=== PATIENT | female | born 1990 | race African-American/Black ===

== ENCOUNTER → 2016-10-09 | Outpatient (CLI) | payer OTHER ==
--- NOTE | 2016-10-10 09:24 | US ---
EXAMINATION TYPE: US pelvic complete DATE OF EXAM: 10/09/2016 6:12 PM COMPARISON: NONE CLINICAL HISTORY: N92.0 Menorrhagia. TECHNIQUE: Transabdominal (TA) Date of LMP: 09/30/16 EXAM MEASUREMENTS: Uterus: 7.2 x 3.1 x 4.8 cm Endometrial Stripe: 0.6 cm Right Ovary: 2.3 x 1.6 x 1.4 cm Left Ovary: 4.5 x 3.2 x 3.2 cm 1. Uterus: Anteverted wnl 2. Endometrium: wnl 3. Right Ovary: wnl 4. Left Ovary: simple appearing cyst measuring 3.9 x 2.7 x 2.9cm 5. Bilateral Adnexa: wnl 6. Posterior cul-de-sac: wnl IMPRESSION: Left ovarian cyst, consider follow-up
== END | disposition home or self-care (01) ==
LOC: RADUSMAIN 17:48
PROVIDERS: ATTEND Obstetrics & Gynecology
DX: N83.201 Unspecified ovarian cyst, right side (principal)
CPT/HCPCS: 76856

== ENCOUNTER 2019-12-19 19:30 | Emergency (ER) | payer OTHER ==
[2019-12-19 19:36] VITALS: RESP 16; TEMP 98
[2019-12-19 20:39] LABS: Basophils % (A) 0 %; Eosinophils # (A) 0.1 k/uL (0-0.7); Eosinophils % (A) 2 %; HCT 33.7 % (34.0-46.0); HGB 11.6 gm/dL (11.4-16.0); Lymphocytes # (A) 1.3 k/uL (1.0-4.8); Lymphocytes % (A) 23 %; MCH 33.6 pg (25.0-35.0); MCHC 34.2 g/dL (31.0-37.0); MCV 98.1 fL (80.0-100.0); Mean Platelet Volume 8.1; Monocytes # (A) 0.3 k/uL (0-1.0); Monocytes % (A) 4 %; Neutrophils # (A) 3.9 k/uL (1.3-7.7); Neutrophils % (A) 69 %; Platelet Count 198 k/uL (150-450); RBC 3.44 m/uL (3.80-5.40); RDW 12.7 % (11.5-15.5); WBC 5.7 k/uL (3.8-10.6)
[2019-12-19 20:46] LABS: Appearance,Urine Clear (Clear); Bacteria,Urine Rare /hpf; Bilirubin,Urine Negative (Negative); Blood,Urine Negative (Negative); Color,Urine Yellow; Glucose,Urine (UA) Negative (Negative); Ketones,Urine Negative (Negative); Leukocyte Esterase,Urine Small (Negative); Mucus,Urine Few /hpf; Nitrite,Urine Negative (Negative); PH, Urine 7.5 (5.0-8.0); Protein,Urine Negative (Negative); RBC,Urine 3 /hpf (0-5); Specific Gravity,Urine 1.026 (1.001-1.035); Squamous Epithelial Cell,Urine <1 /hpf (0-4); WBC,Urine 14 /hpf (0-5)
[2019-12-19 20:49] LABS: ALT 10 U/L (4-34); AST 20 U/L (14-36); African American GFR (CKD) >90 (>60 ml/min/1.73 sqM); Albumin 3.7 g/dL (3.5-5.0); Alkaline Phosphatase 67 U/L (38-126); Anion Gap 6 mmol/L; Blood Urea Nitrogen 11 mg/dL (7-17); Calcium 9.2 mg/dL (8.4-10.2); Carbon Dioxide 24 mmol/L (22-30); Chloride 105 mmol/L (98-107); Glucose 74 mg/dL (74-99); Non-African American GFR(CKD) >90 (>60 ml/min/1.73 sqM); Potassium 3.9 mmol/L (3.5-5.1); Sodium 135 mmol/L (137-145); Total Bilirubin 0.3 mg/dL (0.2-1.3); Total Protein 6.4 g/dL (6.3-8.2)
[2019-12-19 21:05] LABS: HCG,Quantitative Serum 10022.8 mIU/mL
--- NOTE | 2019-12-19 22:04 | US ---
EXAMINATION TYPE: Transabdominal DATE OF EXAM: 12/19/2019 9:15 PM COMPARISON: US 2017 CLINICAL HISTORY: preg, lower abdominal discomfort. , lower abdominal discomfort. LMP unknown . . EXAM PERFORMED: Transvaginal (TV) and Transabdominal (TA) EXAM MEASUREMENTS: GESTATIONAL AGE / DATING Physician Established: Not yet established Dates by LMP: Unknown Dates by First Scan: This is first scan Dates by Current Scan for: (5 weeks/3 days) EDC: 08/18/2019. Gestational sac and yolk sac seen at this time. MATERNAL ANATOMY Uterus: 7.9 x 6.5 x 4.5 cm. Right Ovary: 4.1 x 2.0 x 2.9 cm. Measures enlarged. Anechoic area seen: 1.6 x 1.2 x 1.5 cm. Additiona l mixed area seen as mentioned below. Left Ovary: not seen Post CDS / Adnexa: Fluid seen in CDS Presence of free fluid: Fluid seen in CDS Presence of corpus luteal cyst: Area of mixed echogenicity and peripheral vascularity seen within rig ht ovary: 2.0 x 1.6 x 1.8 cm. Presence of subchorionic bleed: not seen GESTATION / SURVEY MSD: 1.24 cm. (5 weeks/3 days) Yolk Sac (normal less than 6mm): 1.9 mm IUP: Gestational sac and yolk sac seen at this time. Date of LMP: unknown Beta HcG (if available): detected IMPRESSION: 1. Single intrauterine gestation estimated at 5 weeks 3 days gestation based on the mean sac diameter . pole is not identified. Yolk sac is present. No cardiac activity at this time. Follow-up is r ecommended.
--- NOTE | 2019-12-19 22:07 | ED ---
Abdominal Pain HPI - General Chief Complaint: Abdominal Pain Stated Complaint: Abd Pain Time Seen by Provider: 12/19/19 19:39 Source: patient Mode of arrival: ambulatory Limitations: no limitations - History of Present Illness Initial Comments: 29-year-old A1 presenting to the emergency department today for chief complaint of lower abdominal cramping. Patient states that she had positive test one week ago. She states her last period was in the beginning of November inches unsure of the exact date. Patient denies any vaginal bleeding va ginal discharge dysuria urgency frequency. She states she developed cramping yesterday. Patient states that she follows Dr. Farley for OBGYN care. Patient states that she was concerned that something was wrong with the and presented to the ER for evaluation. patient has no additional complaints. - Related Data Home Medications Medication Instructions Recorded Confirmed Hydrocortisone Oint 1 applic TOPICAL BID PRN 12/19/19 12/19/19 [Hydrocortisone 2.5% Oint] Allergies Allergy/AdvReac Type Severity Reaction Status Date / Time No Known Allergies Allergy Verified 12/19/19 20:42 Review of Systems ROS Statement: Those systems with pertinent positive or pertinent negative responses have been documented in the HPI. ROS Other: All systems not noted in ROS Statement are negative. Past Medical History Past Medical History: No Reported History History of Any Multi-Drug Resistant Organisms: None Reported Past Surgical History: No Surgical Hx Reported Past Anesthesia/Blood Transfusion Reactions: No Reported Reaction Past Psychological History: No Psychological Hx Reported Smoking Status: Never smoker Past Alcohol Use History: None Reported Past Drug Use History: None Reported - Past Family History Mother Family Medical History: Hypertension General Exam - General Exam Comments Initial Comments: General: The patient is awake and alert, in no distress Eye: +3 mm pupils are equal, round and reactive to light, extra-ocular movements are intact. No nystagmus. There is normal conjunctiva bilaterally. No signs of icterus. Cardiovascular: There is a regular rate and rhythm. No murmur, rub or gallop is appreciated. Respiratory: Lungs are clear to auscultation, respirations are non-labored, breath sounds are equal. No wheezes, stridor, rales, or rhonchi. Gastrointestinal: Soft, non-distended, non-tender abdomen without masses or organomegaly noted. There is no rebound or guarding present. Musculoskeletal: Normal ROM, no tenderness. Strength 5/5. Sensation intact. Radial pulses equal bilaterally 2+. Neurological: A&O x 3. CN II-XII intact grossly, There are no obvious motor or sensory deficits. Coordination appears grossly intact. Speech is normal. Skin: Skin is warm and dry and no rashes or lesions are noted. Psychiatric: Cooperative, appropriate mood & affect, normal judgment. Limitations: no limitations Course Vital Signs 12/19/19 12/19/19 19:33 22:27 Temperature 98.0 F Pulse Rate 62 81 Respiratory 16 16 Rate Blood Pressure 103/71 124/72 O2 Sat by Pulse 100 99 Oximetry Medical Decision Making - Medical Decision Making 29F feel presented for chief complaint of lower abdominal cramping. In . Last period last month. There is IUP on US measuring 5wks 3 days. Patient denies vaginal bleeding. Refused vaginal examination. Patient is agreeable to care plan and discharge. I recommended f/u in office with Dr. Farley. Discussed case wtih Dr. Powers. - Lab Data Result diagrams: 12/19/19 20:13 12/19/19 20:13 Lab Results 12/19/19 12/19/19 12/19/19 Range/Units 19:44 19:53 20:13 WBC (3.8-10.6) k/uL RBC (3.80-5.40) m/uL Hgb (11.4-16.0) gm/dL Hct (34.0-46.0) % MCV (80.0-100.0) fL MCH (25.0-35.0) pg MCHC (31.0-37.0) g/dL RDW (11.5-15.5) % Plt Count (150-450) k/uL Neutrophils % % Lymphocytes % % Monocytes % % Eosinophils % % Basophils % % Neutrophils # (1.3-7.7) k/uL Lymphocytes # (1.0-4.8) k/uL Monocytes # (0-1.0) k/uL Eosinophils # (0-0.7) k/uL Basophils # (0-0.2) k/uL Sodium 135 L (137-145) mmol/L Potassium 3.9 (3.5-5.1) mmol/L Chloride 105 (98-107) mmol/L Carbon Dioxide 24 (22-30) mmol/L Anion Gap 6 mmol/L BUN 11 (7-17) mg/dL Creatinine 0.55 (0.52-1.04) mg/dL Est GFR (CKD-EPI)AfAm >90 (>60 ml/min/1.73 sqM) Est GFR (CKD-EPI)NonAf >90 (>60 ml/min/1.73 sqM) Glucose 74 (74-99) mg/dL Calcium 9.2 (8.4-10.2) mg/dL Total Bilirubin 0.3 (0.2-1.3) mg/dL AST 20 (14-36) U/L ALT 10 (4-34) U/L Alkaline Phosphatase 67 (38-126) U/L Total Protein 6.4 (6.3-8.2) g/dL Albumin 3.7 (3.5-5.0) g/dL HCG, Quant 25824.8 mIU/mL Urine Color Yellow Urine Appearance Clear (Clear) Urine pH 7.5 (5.0-8.0) Ur Specific [place] 1.026 (1.001-1.035) Urine Protein Negative (Negative) Urine Glucose (UA) Negative (Negative) Urine Ketones Negative (Negative) Urine Blood Negative (Negative) Urine Nitrite Negative (Negative) Urine Bilirubin Negative (Negative) Urine Urobilinogen 4.0 (<2.0) mg/dL Ur Leukocyte Esterase Small H (Negative) Urine RBC 3 (0-5) /hpf Urine WBC 14 H (0-5) /hpf Ur Squamous Epith Cells <1 (0-4) /hpf Urine Bacteria Rare H (None) /hpf Urine Mucus Few H (None) /hpf Urine HCG, Qual Detected (Not Detectd) 12/19/19 Range/Units 20:13 WBC 5.7 (3.8-10.6) k/uL RBC 3.44 L (3.80-5.40) m/uL Hgb 11.6 (11.4-16.0) gm/dL Hct 33.7 L (34.0-46.0) % MCV 98.1 (80.0-100.0) fL MCH 33.6 (25.0-35.0) pg MCHC 34.2 (31.0-37.0) g/dL RDW 12.7 (11.5-15.5) % Plt Count 198 (150-450) k/uL Neutrophils % 69 % Lymphocytes % 23 % Monocytes % 4 % Eosinophils % 2 % Basophils % 0 % Neutrophils # 3.9 (1.3-7.7) k/uL Lymphocytes # 1.3 (1.0-4.8) k/uL Monocytes # 0.3 (0-1.0) k/uL Eosinophils # 0.1 (0-0.7) k/uL Basophils # 0.0 (0-0.2) k/uL Sodium (137-145) mmol/L Potassium (3.5-5.1) mmol/L Chloride (98-107) mmol/L Carbon Dioxide (22-30) mmol/L Anion Gap mmol/L BUN (7-17) mg/dL Creatinine (0.52-1.04) mg/dL Est GFR (CKD-EPI)AfAm (>60 ml/min/1.73 sqM) Est GFR (CKD-EPI)NonAf (>60 ml/min/1.73 sqM) Glucose (74-99) mg/dL Calcium (8.4-10.2) mg/dL Total Bilirubin (0.2-1.3) mg/dL AST (14-36) U/L ALT (4-34) U/L Alkaline Phosphatase (38-126) U/L Total Protein (6.3-8.2) g/dL Albumin (3.5-5.0) g/dL HCG, Quant mIU/mL Urine Color Urine Appearance (Clear) Urine pH (5.0-8.0) Ur Specific [place] (1.001-1.035) Urine Protein (Negative) Urine Glucose (UA) (Negative) Urine Ketones (Negative) Urine Blood (Negative) Urine Nitrite (Negative) Urine Bilirubin (Negative) Urine Urobilinogen (<2.0) mg/dL Ur Leukocyte Esterase (Negative) Urine RBC (0-5) /hpf Urine WBC (0-5) /hpf Ur Squamous Epith Cells (0-4) /hpf Urine Bacteria (None) /hpf Urine Mucus (None) /hpf Urine HCG, Qual (Not Detectd) Disposition Clinical Impression: Early stage of , Intrauterine Disposition: HOME SELF-CARE Condition: Good Instructions (If sedation given, give patient instructions): Abdominal Pain in (ED) Additional Instructions: Please use medication as discussed. Please follow-up with Dr. Johnson in next week. Please return to emergency room if the symptoms increase or worsen or for any other concerns. Is patient prescribed a controlled substance at d/c from ED?: No Referrals: Vivi Conley MD [Primary Care Provider] - 1-2 days Mee Johnson DO [Doctor of Osteopathic Medicine] - 1-2 days Time of Disposition: 22:13
[2019-12-19 22:29] VITALS: BP 124/72; PULSE 81
== END 2019-12-19 22:26 | disposition home or self-care (01) ==
LOC: EC 19:30
DX: O99.89 Other specified diseases and conditions complicating pregnancy, childbirth and the puerperium (principal); R10.30 Lower abdominal pain, unspecified; Z3A.01 Less than 8 weeks gestation of pregnancy; Z53.29 Procedure and treatment not carried out because of patient's decision for other reasons
CPT/HCPCS: 36415; 76801; 76817; 80053; 81001; 81025; 84702; 85025; 87086; 99284

== ENCOUNTER → 2020-01-15 | Outpatient (CLI) | payer MEDICARE, OTHER ==
--- NOTE | 2020-01-15 09:31 | US ---
EXAMINATION TYPE: Transabdominal DATE OF EXAM: 01/15/2020 9:00 AM COMPARISON: Ultrasound December 19, 2019 CLINICAL HISTORY: Z36 CONFIRM DATES. Dates EXAM PERFORMED: Transabdominal (TA) EXAM MEASUREMENTS: GESTATIONAL AGE / DATING Dates by LMP: (9 weeks/2 days) EDC: 08/18/2019 Dates by First Scan: Unable to date by first ultrasound Dates by Current Scan for: (9 weeks/3 days) EDC: 08/17/2019 MATERNAL ANATOMY Uterus: 10.0 x 7.4 x 5.6 cm Right Ovary: 4.1 x 2.1 x 2.6 cm Left Ovary: 3.8 x 1.8 x 1.7 cm Post CDS / Adnexa: no free fluid Presence of free fluid: no Presence of corpus luteal cyst: right hypoechoic lesion with peripheral vascular flow = 1.9 x 2.2 x 1 .8 cm Presence of subchorionic bleed: no GESTATION / SURVEY CRL: 2.7 cm (9 weeks/3 days) MSD: seen, not measured Yolk Sac (normal less than 6mm): 2.8 mm Heart Rate: 171 bpm Rhythm: Normal IUP: Viable IUP Date of LMP: 11/11/2019, Beta HcG (if available): Not available at this time Single live IUP measuring 9 weeks 3 days Single live intrauterine gestation is now identified. The gestational sac, yolk sac, now pole a re seen on today's study. heart tones regular and within normal limits. No free fluid in pelvic cul-de-sac. Both ovaries redemonstrated. Persistent corpus luteal cyst suspected in the right ovary. No concernin g ovarian adnexal masses. IMPRESSION: There is now confirmation of single live intrauterine gestation with satisfactory interva l progression from prior ultrasound, mean crown-rump length is 2.7 cm corresponding to a 9 week 3 day old fetus.
== END | disposition home or self-care (01) ==
LOC: RADUSWWP 08:45
PROVIDERS: ATTEND Obstetrics & Gynecology
DX: Z36.9 Encounter for antenatal screening, unspecified (principal); Z3A.09 9 weeks gestation of pregnancy
CPT/HCPCS: 76801

== ENCOUNTER 2020-08-04 | Outpatient (CLI) | payer MEDICARE, OTHER ==
--- NOTE | 2020-08-05 06:51 | P.MSEPDOC ---
Presenting Problems - Arrival Data Date of Arrival on Unit: 08/05/20 Time of Arrival on Unit: 23:30 Mode of Transport: Wheelchair - Complaint OB-Reason for Admission/Chief Complaint: Possible Onset of Labor, Rule Out SROM Comment: Pt presents to triage with c/o contractions starting around 1900 and possible leaking of fluid which started at 2100. Pt states she is not sure if water broke or not. Contractions tracing every 2.5-5 minutes. Amnisure performed which was negative. Medical History - Information : 3 Para: 1 Term: 1 : 0 Abortions: Spontaneous or Elective: 1 Number of Living Children: 1 - Gestational Age Gestational Age by HUBER (wks/days): 38 Weeks and 3 Days - History Complications: Other Comment: Pt positive for trichomonas and treated with Flagyl at 15 weeks. Review of Systems - Review of Systems Constitutional: No problems Breast: No problems ENT: No problems Cardiovascular: No problems Respiratory: No problems Gastrointestinal: No problems Genitourinary: No problems Musculoskeletal: No problems Neurological: No problems Skin: No problems Vital Signs - Temperature Temperature: 96.6 F Temperature Source: Temporal Artery Scan - Pulse Apical Pulse Rate: 76 Pulse Assessment Method: Automatic Cuff - Respirations Respiratory Rate: 18 Oxygen Delivery Method: Room Air O2 Sat by Pulse Oximetry: 99 - Blood Pressure Right Arm Blood Pressure: 126/80 Blood Pressure Mean: 95 Blood Pressure Source: Automatic Cuff Medical Screen Scoring (Pre) - Cervical Exam Dilation: 4-7 cm = 2 Effacement: More than 50% = 2 Membranes: Intact - Uterine Contractions Frequency: > or = 36 weeks =2 Duration: > 40 seconds = 2 Intensity: N/A - Maternal Vital Signs Maternal Temperature: N/A Maternal Blood Pressure: N/A Signs of Preeclampsia: N/A Maternal Respirations: N/A - Maternal Trauma Maternal Trauma: N/A - Assessment - Baby A Baseline FHR: 135 Heart Rate - NICHD Category: Category I (Normal) = 0 NST: Reactive Position: N/A Station: N/A - Total Score - Baby A Total Score - Baby A: 8 - Total Score - Baby B Total Score - Baby B: 8 - Total Score - Baby C Total Score - Baby C: 8 - Level of Risk - Baby A Level of Risk - Baby A: Medium (6-9) - Level of Risk - Baby B Level of Risk - Baby B: Medium (6-9) - Level of Risk - Baby C Level of Risk - Baby C: Medium (6-9) Physician Notification (Pre) - Physician Notified Physician Notified Date: 08/05/20 Physician Notified Time: 01:09 New Order Received: Yes - Notification Comment Comment: Dr. Farley called re: pt c/o contractions and "leaking fluid", maternal status, pain scale 9/10, status, negative amnisure result, SVE and no cervical change within the hour. Orders received to d/c pt home. Pt to keep scheduled appt with Dr. Johnson tomorrow. Disposition - Disposition OB Disposition: Discharge to home Discharge Date: 08/05/20 Discharge Time: 01:18 I agree with the RN Medical Screening Exam: Yes Case reviewed; plan agreed upon as documented in EMR&OBIX.: Yes Diagnosis: FALSE LABOR BEFORE 37 COMPLETED WEEKS OF GEST, THIRD TRI
== END 2020-08-05 01:18 | disposition home or self-care (01) ==
CPT/HCPCS: 59025; 84112; G0463; 99213

== ENCOUNTER 2020-08-07 00:59 | Inpatient (IN) | payer MEDICARE, OTHER ==
[2020-08-07] MEDS ORDERED: TERBUTALINE 1 MG/ML VIAL SQ PRN (01:19)
[2020-08-07] MEDS ORDERED: METHYLERGONOVINE 0.2 MG/ML 1 ML AMP IM PRN (01:19)
[2020-08-07] MEDS ORDERED: CARBOPROST TROMETHAMINE 250 MCG/ML 1 ML AMP IM PRN (01:19)
[2020-08-07] MEDS ORDERED: OXYTOCIN 10 UNIT/ML 1 ML VIAL IM PRN (01:19)
[2020-08-07] MEDS ORDERED: LIDOCAINE 0.5% (PF) 5 MG/ML (50 ML SDV) SQ PRN (01:19)
[2020-08-07] MEDS ORDERED: AMPICILLIN 2,000 MG in SODIUM CHLORIDE 0.9% 100 ML IVPB ONE (01:30)
[2020-08-07] MEDS ORDERED: OXYTOCIN 30 UNITS/500 ML NS 30 UNIT in SALINE 1 500ML.BAG IV SCH ×2 (01:30→11:39)
[2020-08-07] MEDS: LACTATED RINGERS 1,000 ML IV SCH ×2 (01:38→08:51)
[2020-08-07 02:08] LABS: Basophils % (A) 0 %; Eosinophils % (A) 1 %; Lymphocytes # (A) 1.2 k/uL (1.0-4.8); Lymphocytes % (A) 23 %; MCH 30.7 pg (25.0-35.0); MCHC 33.5 g/dL (31.0-37.0); MCV 91.7 fL (80.0-100.0); Mean Platelet Volume 9.2; Monocytes # (A) 0.3 k/uL (0-1.0); Monocytes % (A) 5 %; Neutrophils # (A) 3.7 k/uL (1.3-7.7); Neutrophils % (A) 68 %; Platelet Count 175 k/uL (150-450); RBC 3.27 m/uL (3.80-5.40); RDW 13.6 % (11.5-15.5); WBC 5.4 k/uL (3.8-10.6)
[2020-08-07 02:45] LABS: ALT 8 U/L (4-34); AST 21 U/L (14-36); African American GFR (CKD) >90 (>60 ml/min/1.73 sqM); LDH 422 U/L (313-618); Non-African American GFR(CKD) >90 (>60 ml/min/1.73 sqM); Uric Acid 3.2 mg/dL (3.7-7.4)
[2020-08-07 03:05] LABS: Appearance,Urine Clear (Clear); Bilirubin,Urine Negative (Negative); Blood,Urine Negative (Negative); Color,Urine Light Yellow; Glucose,Urine (UA) Negative (Negative); Ketones,Urine Negative (Negative); Leukocyte Esterase,Urine Negative (Negative); Nitrite,Urine Negative (Negative); Protein,Urine Negative (Negative); Specific Gravity,Urine 1.017 (1.001-1.035); Urobilinogen,Urine <2.0 mg/dL (<2.0)
[2020-08-07] MEDS: AMPICILLIN 1,000 MG in SODIUM CHLORIDE 0.9% 50 ML IVPB SCH ×2 (05:46→09:44)
[2020-08-07] MEDS ORDERED: BUTORPHANOL 1 MG/ML 1 ML VIAL IV PRN (06:47)
[2020-08-07] MEDS ORDERED: ROPIVACAINE 5MG/ML 20ML VIAL ONE (08:21)
[2020-08-07] MEDS ORDERED: fentaNYL (PF) 50 MCG/ML 5 ML AMP ONE (08:21)
[2020-08-07] MEDS ORDERED: SODIUM CHLORIDE 0.9% 100 ML BAG ONE (08:21)
--- NOTE | 2020-08-07 09:02 | P.HPOB ---
History of Present Illness H&P Date: 08/07/20 Chief Complaint: Spontaneous rupture membranes This is a 30-year-old female 3 para 1 at 38-4/7 weeks who presented with spontaneous rupture of membranes at approximately 12:30 AM. She has been feeling contractions since. course has been essentially uncomplicated. She was treated for trichomonas earlier in the . She has used marijuana during the but was advised to stop using it. labs: Hepatitis B surface antigen-negative RPR-nonreactive Rubella-immune Blood type-O+ Antibody screen-negative HIV-nonreactive Hemoglobin-11 Random glucose-73 Obstetrical ultrasound-normal anatomy One hour Glucola-1:15 Group B streptococcus-positive GC chlamydia-negative Trichomonas-positive but test of cure negative. Obstetrical history: . History of 1 vaginal delivery at 35-1/2 weeks with labor. History of 1 miscarriage. Gynecologic history: No history of sexually transmitted diseases. History of Trichomonas. Social history: She is single. She is unemployed. Review of Systems Constitutional: Denies chills, Denies fever Eyes: denies blurred vision, denies pain Ears, nose, mouth and throat: Denies headache, Denies sore throat Cardiovascular: Denies chest pain, Denies shortness of breath Respiratory: Denies cough Gastrointestinal: Reports abdominal pain (Contractions) Genitourinary: Reports pelvic pain, Reports Musculoskeletal: Reports low back pain Integumentary: Denies pruritus, Denies rash Neurological: Denies numbness, Denies weakness Psychiatric: Denies anxiety, Denies depression Past Medical History Past Medical History: No Reported History History of Any Multi-Drug Resistant Organisms: None Reported Past Surgical History: No Surgical Hx Reported Past Anesthesia/Blood Transfusion Reactions: No Reported Reaction Past Psychological History: No Psychological Hx Reported Smoking Status: Former smoker Past Alcohol Use History: None Reported Past Drug Use History: Marijuana (Was advised to quit in early .) - Past Family History Mother Family Medical History: Hypertension Medications and Allergies Home Medications Medication Instructions Recorded Confirmed Type No Known Home Medications 08/04/20 08/07/20 History Allergies Allergy/AdvReac Type Severity Reaction Status Date / Time No Known Allergies Allergy Verified 08/07/20 01:03 Exam Osteopathic Statement: *. No significant issues noted on an osteopathic structural exam other than those noted in the History and Physical/Consult. Vital Signs Temp Pulse Resp BP Pulse Ox 08/07/20 01:03 97.8 F 69 16 140/87 99 Intake and Output 08/06/20 08/07/20 08/07/20 22:59 06:59 14:59 Other: Weight 81.647 kg HEENT: Within normal limits Heart: Regular rate and rhythm Lungs: Clear to auscultation bilaterally Abdomen: Cervix: Initially 4-5 cm/70%/-2 station. Positive amnisure with clear fluid noted. heart tones: Reactive, category 1 Contractions: Irregular approximately 5 minutes apart. Extremities: Negative Homans. Results Result Diagrams: 08/07/20 01:35 08/07/20 01:35 Abnormal Lab Results - Last 24 Hours (Table) 08/07/20 08/07/20 Range/Units 01:35 01:35 RBC 3.27 L (3.80-5.40) m/uL Hgb 10.0 L (11.4-16.0) gm/dL Hct 30.0 L (34.0-46.0) % Creatinine 0.46 L (0.52-1.04) mg/dL Uric Acid 3.2 L (3.7-7.4) mg/dL Assessment and Plan (1) 38 weeks gestation of Current Visit: Yes Status: Acute Code(s): Z3A.38 - 38 WEEKS GESTATION OF SNOMED Code(s): 05163205 (2) Group B Streptococcus carrier, +RV culture, currently Current Visit: Yes Status: Acute Code(s): O99.820 - STREPTOCOCCUS B CARRIER STATE COMPLICATING SNOMED Code(s): 1078599569067 Plan: Admission for active labor. Epidural anesthesia. Ampicillin for group B streptococcus carrier. Expectant management. Will consult case management social worker after delivery for history of marijuana use.
[2020-08-07] MEDS ORDERED: SIMETHICONE 80 MG CHEWABLE PO PRN (11:39)
[2020-08-07] MEDS ORDERED: HYDROCORTISONE 2.5% RECTAL CREAM 30 GM TUBE RECTAL PRN (11:39)
[2020-08-07] MEDS ORDERED: diphenhydrAMINE 50 MG/ML 1 ML VIAL IVP PRN ×2 (11:39)
[2020-08-07] MEDS ORDERED: LANOLIN CREAM 5 GM TUBE TOPICAL PRN (11:39)
[2020-08-07] MEDS ORDERED: ZOLPIDEM 5 MG TAB PO PRN (11:39)
[2020-08-07] MEDS ORDERED: diphenhydrAMINE 25 MG CAP PO PRN (11:39)
[2020-08-07] MEDS ORDERED: diphenhydrAMINE 50 MG CAP PO PRN (11:39)
[2020-08-07] MEDS ORDERED: BENZOCAINE/MENTHOL SPRAY 1 GM/SPRAY AEROSOL TOPICAL PRN (11:39)
--- NOTE | 2020-08-07 13:03 | P.PROBDLV ---
Vaginal Delivery Note - . Vaginal Delivery Note: The patient progressed to complete dilation after oxytocin augmentation of labor and artificial rupture of membranes of a 4 bag with clear fluid noted. She did receive epidural anesthesia. Once reaching complete, she began pushing. After approximately 50 minutes, the 's head came to a crown. She was noted to have variable decelerations down to the 60s with good return to baseline after her contractions. With one further push, the 's head delivered across the perineum and a right occiput posterior lie followed by the anterior shoulder. A tight nuchal cord 2 was doubly clamped and cut and reduced around the 's. With one remaining push the remainder the easily delivered and was placed on mother's abdomen. Infant was immediately taken to warmer for evaluation by nursing staff. A viable female infant was noted with scores of 2 at 1 minute 6 at 5 minutes and 7 at 10 minutes. The placenta delivered shortly thereafter, intact, with a three-vessel cord. Uterus contracted fairly well after oxytocin was given and uterine massage was carried out. Her bladder was also drained with a catheter to facilitate uterine contraction. Inspection of the perineum revealed a second-degree perineal laceration. This was anesthetized with 1% lidocaine and sutured with 3-0 and 2-0 Vicryl suture in the usual multilayer fashion. Estimated blood loss is approximately 200 mL's. Mother is in stable condition and infant is taken to nursery for further evaluation.
[2020-08-07] MEDS: IBUPROFEN 600 MG TAB PO PRN ×2 (14:00→21:23)
[2020-08-07] MEDS: ACETAMINOPHEN TAB 325 MG TAB PO PRN (15:30)
[2020-08-07 20:09] VITALS: RESP 16
[2020-08-07] MEDS: SENNOSIDES-DOCUSATE SODIUM 1 EACH TAB PO SCH (21:24)
[2020-08-08] MEDS: ACETAMINOPHEN TAB 325 MG TAB PO PRN (02:30)
[2020-08-08] MEDS: IBUPROFEN 600 MG TAB PO PRN (07:11)
[2020-08-08] MEDS: SENNOSIDES-DOCUSATE SODIUM 1 EACH TAB PO SCH (07:45)
[2020-08-08 08:11] VITALS: BP 119/70; PULSE 74; TEMP 98.1
--- NOTE | 2020-08-08 09:00 | P.DS ---
Providers Date of admission: 08/07/20 01:15 Expected date of discharge: 08/08/20 Attending physician: Mee Johnson Primary care physician: Stated None - Discharge Diagnosis(es) (1) Normal vaginal delivery Current Visit: Yes Status: Acute Hospital Course: Patient presented after spontaneous rupture of membranes. She underwent a normal vaginal delivery with Pitocin augmentation. course was uncomplicated. She'll be discharged home day #1 in stable condition to follow-up with Dr. Johnson in 6 weeks. Plan - Discharge Summary New Discharge Prescriptions: New Ibuprofen [Motrin] 600 mg PO Q6HR PRN #30 tab PRN Reason: Mild Pain Or Fever >= 100.5 Discharge Medication List Ibuprofen [Motrin] 600 mg PO Q6HR PRN #30 tab 08/08/20 [Rx] Follow up Appointment(s)/Referral(s): Lorena Farley DO [Doctor of Osteopathic Medicine] - 6 Weeks Discharge Disposition: HOME SELF-CARE
[2020-08-08 10:01] LABS: Basophils % (A) 0 %; Eosinophils # (A) 0.1 k/uL (0-0.7); Eosinophils % (A) 2 %; HCT 25.9 % (34.0-46.0); HGB 8.6 gm/dL (11.4-16.0); Hypochromasia Slight; Lymphocytes % (A) 17 %; MCH 30.7 pg (25.0-35.0); MCHC 33.1 g/dL (31.0-37.0); MCV 92.6 fL (80.0-100.0); Mean Platelet Volume 8.9; Monocytes # (A) 0.3 k/uL (0-1.0); Monocytes % (A) 5 %; Neutrophils # (A) 4.3 k/uL (1.3-7.7); Neutrophils % (A) 74 %; Platelet Count 123 k/uL (150-450); RDW 13.9 % (11.5-15.5); WBC 5.9 k/uL (3.8-10.6)
== END 2020-08-08 13:20 | disposition home or self-care (01) | DRG 807 ==
LOC: FBPOP 00:59 → 4FBP 01:15
PROVIDERS: ADMIT Obstetrics & Gynecology; ATTEND Obstetrics & Gynecology
PROC: 3E0R3BZ Introduction of Anesthetic Agent into Spinal Canal, Percutaneous Approach (ICD-10-PCS; principal; 2020-08-07)
PROC: 00HU33Z Insertion of Infusion Device into Spinal Canal, Percutaneous Approach (ICD-10-PCS; principal; 2020-08-07)
PROC: 10E0XZZ Delivery of Products of Conception, External Approach (ICD-10-PCS; principal; 2020-08-07)
PROC: 0KQM0ZZ Repair Perineum Muscle, Open Approach (ICD-10-PCS; principal; 2020-08-07)
DX: O99.824 Streptococcus B carrier state complicating childbirth (principal); Z37.0 Single live birth; O69.1XX0 Labor and delivery complicated by cord around neck, with compression, not applicable or unspecified; O76 Abnormality in fetal heart rate and rhythm complicating labor and delivery; O70.1 Second degree perineal laceration during delivery; Z3A.38 38 weeks gestation of pregnancy; Z86.19 Personal history of other infectious and parasitic diseases; Z87.891 Personal history of nicotine dependence; Z82.49 Family history of ischemic heart disease and other diseases of the circulatory system
CPT/HCPCS: 59025; 81003; 82565; 83615; 84112; 84450; 84460; 84520; 84550; 85025; 86850; 86900; 86901; 99213